=== PATIENT | male | born 1935 | race Caucasian/White ===

== ENCOUNTER 2023-05-21 20:22 | Inpatient (IN) | payer OTHER ==
[~2023-05-21] VITALS: Ht 180.3 cm; Wt 94.6 kg
[2023-05-21] MEDS ORDERED: ONDANSETRON HCL 4 MG/2 ML VIAL IV PRN (22:15)
[2023-05-21] MEDS ORDERED: HYDROcodone-ACET 5/325MG TAB PO PRN (22:15)
[2023-05-21] MEDS ORDERED: MORPHINE SULFATE INJ 2 MG/ml SYRG IV PRN (22:15)
[2023-05-21] MEDS ORDERED: ACETAMINOPHEN 325 MG TAB PO PRN (22:15)
[2023-05-21] MEDS ORDERED: NITROGLYCERIN 0.4 MG SL TAB SL PRN (22:15)
[2023-05-22] VITALS (8 sets, daily range): BP systolic 126–166; BP diastolic 66–81; PULSE 43–83; RESP 17–20; TEMP 97.1–98.9; O2SAT 92–98
[2023-05-22 00:06] LABS: Basophils # (auto) 0.1 10 ^3/uL (0-0.2); Basophils % (auto) 0.7 % (0.0-2.0); Eosinophils # (auto) 0.2 10 ^3/uL (0-0.8); Eosinophils % (auto) 1.6 % (0.0-7.0); Hematocrit 47.2 % (41.0-53.0); Hemoglobin 15.2 g/dL (13.5-17.5); Lymphocytes # (auto) 1.5 10 ^3/uL (0.4-5.4); Lymphocytes % (auto) 12.5 % (10.0-50.0); Mean Corpuscular Hgb Conc. 32.3 g/dL (32.0-36.0); Mean Corpuscular Volume 89.9 fL (80.0-100.0); Monocytes # (auto) 1.1 10 ^3/uL (0-1.3); Monocytes % (auto) 9.1 % (0.0-12.0); Neutrophils # (auto) 9.3 10 ^3/uL (1.6-8.6); Neutrophils % (auto) 76.1 % (37.0-80.0); Red Blood Cells 5.25 10^6/uL (4.5-5.90); White Blood Cell 12.2 10^3/uL (4.4-10.8)
[2023-05-22 00:15] LABS: Chloride 104 mmol/L (98-107); Potassium 4.2 mmol/L (3.5-5.1); Sodium 136 mmol/L (136-145)
[2023-05-22 00:16] LABS: Anion Gap 3 (5-15); Calcium 10.1 mg/dL (8.7-10.4); Carbon Dioxide 29 mmol/L (20-30)
[2023-05-22 00:21] LABS: BUN/Creatinine Ratio 17.5 (10.0-20.0); Blood Urea Nitrogen 30 mg/dL (9-23); Glucose 117 mg/dL (74-106); INR 1.09 (0.9-1.15); Partial Thromboplastin Time 32.6 SEC (24.5-34.5); Prothrombin Time 11.4 sec (9.3-11.8)
[2023-05-22] MEDS ORDERED: FENO160T PO (00:45)
[2023-05-22] MEDS ORDERED: LEV75T PO (00:45)
[2023-05-22] MEDS ORDERED: ACETYLCYSTEINE ORAL for CIN 20%(200MG/ML) 4ML PO SCH (01:00)
[2023-05-22] MEDS: SODIUM CHLORIDE 0.9% 1,000 ML IV SCH ×2 (01:52→08:30)
[2023-05-22] MEDS: cefTRIAXone 1GM/50ML D5W 50 ML IV SCH (01:53)
[2023-05-22] MEDS: LEVOTHYROXINE SODIUM 25 MCG TAB PO SCH (07:00)
[2023-05-22 09:54] LABS: Chloride 104 mmol/L (98-107); Potassium 4.9 mmol/L (3.5-5.1); Sodium 138 mmol/L (136-145)
[2023-05-22 09:55] LABS: Anion Gap 6 (5-15); Calcium 9.5 mg/dL (8.5-10.1); Carbon Dioxide 28 mmol/L (20-30); INR 1.08 (0.9-1.15); Partial Thromboplastin Time 29.7 SEC (24.5-34.5); Prothrombin Time 11.3 sec (9.3-11.8)
[2023-05-22 10:00] LABS: BUN/Creatinine Ratio 22.8 (10.0-20.0); Blood Urea Nitrogen 34 mg/dL (9-23); Glucose 105 mg/dL (74-106)
[2023-05-22] MEDS: PANTOPRAZOLE 40 MG/10 ML VIAL INJ IV SCH (10:00)
[2023-05-22] MEDS ORDERED: HEPARIN SODIUM (PORCINE) 5000 UNITS/ML 1ML VIAL IV ONE (10:30)
[2023-05-22] MEDS: HEPARIN DRIP/D5W 100UNITS/ML 250 ML IV SCH (11:38)
[2023-05-22 18:33] LABS: INR 1.09 (0.9-1.15); Partial Thromboplastin Time 41.2 SEC (24.5-34.5); Prothrombin Time 11.4 sec (9.3-11.8)
[2023-05-22] MEDS: ATORVASTATIN 20 MG TAB PO SCH (21:09)
[2023-05-23] VITALS (11 sets, daily range): BP systolic 106–172; BP diastolic 60–95; PULSE 64–77; RESP 15–21; TEMP 97.1–97.8; O2SAT 95–98
[2023-05-23 02:26] LABS: Basophils # (auto) 0.1 10 ^3/uL (0-0.2); Basophils % (auto) 0.9 % (0.0-2.0); Eosinophils # (auto) 0.5 10 ^3/uL (0-0.8); Hematocrit 39.6 % (41.0-53.0); Lymphocytes # (auto) 1.4 10 ^3/uL (0.4-5.4); Lymphocytes % (auto) 17.5 % (10.0-50.0); Mean Corpuscular Hemoglobin 29.4 pg (28.0-32.0); Mean Corpuscular Hgb Conc. 32.9 g/dL (32.0-36.0); Mean Corpuscular Volume 89.4 fL (80.0-100.0); Monocytes # (auto) 0.8 10 ^3/uL (0-1.3); Monocytes % (auto) 10.5 % (0.0-12.0); Neutrophils # (auto) 5.1 10 ^3/uL (1.6-8.6); Neutrophils % (auto) 65.1 % (37.0-80.0); Nucleated Red Blood Cells % 0.1 %; Red Blood Cells 4.43 10^6/uL (4.5-5.90); Red Cell Distribution Width 14.5 % (11.8-14.3); White Blood Cell 7.7 10^3/uL (4.4-10.8)
[2023-05-23 02:38] LABS: Chloride 106 mmol/L (98-107); Potassium 4.3 mmol/L (3.5-5.1); Sodium 136 mmol/L (136-145)
[2023-05-23 02:39] LABS: Anion Gap 3 (5-15); Carbon Dioxide 27 mmol/L (20-30)
[2023-05-23 02:40] LABS: Calcium 9.1 mg/dL (8.7-10.4)
[2023-05-23 02:44] LABS: BUN/Creatinine Ratio 19.5 (10.0-20.0); Glucose 104 mg/dL (74-106); INR 1.08 (0.9-1.15); Partial Thromboplastin Time 56.4 SEC (24.5-34.5); Prothrombin Time 11.3 sec (9.3-11.8)
[2023-05-23 02:49] LABS: Blood Urea Nitrogen 24 mg/dL (9-23)
[2023-05-23] MEDS: ACETYLCYSTEINE 20%(200MG/ML) SOLN 30ML PO SCH (05:49)
[2023-05-23 08:44] LABS: INR 1.08 (0.9-1.15); Prothrombin Time 11.3 sec (9.3-11.8)
[2023-05-23] MEDS: HEPARIN DRIP/D5W 100UNITS/ML 250 ML IV SCH (10:04)
[2023-05-23 10:11] LABS: Partial Thromboplastin Time 81.3 SEC (24.5-34.5)
[2023-05-23] MEDS ORDERED: HEPARIN DRIP/D5W 100UNITS/ML 250 ML IV SCH (10:20)
[2023-05-23] MEDS: fentaNYL CITRATE 100 MCG/2 ML VL ONE (10:36)
[2023-05-23] MEDS: ANGIOMAX 250 MG VIAL IV ONE (10:36)
[2023-05-23] MEDS: MIDAZOLAM HCL 2MG/2ML 2ml VIAL (1mg/ml) ONE (10:36)
[2023-05-23] MEDS: HEPARIN SODIUM (PORCINE) 5000 UNITS/ML 1ML VIAL ONE (10:36)
[2023-05-23] MEDS: VERAPAMIL 2.5MG/ML INJ 2ML VIAL IV ONE (10:36)
[2023-05-23] MEDS: LIDOCAINE 2%HCL (LOCAL ANESTH.) INJ 20ML MDV ONE (10:37)
[2023-05-23] MEDS: IODIXANOL 320MG/ML 100ML BTL IV ONE (10:37)
[2023-05-23] MEDS: SODIUM CHL 0.9% 0 ML ONE (10:37)
[2023-05-23] MEDS: hydrALAZINE HCL 20 MG/ML VL ONE (11:02)
[2023-05-23] MEDS: SODIUM CHLORIDE 0.9% 1,000 ML IV SCH (14:51)
[2023-05-23] MEDS: hydrALAZINE HCL 10 MG TAB PO PRN (16:31)
[2023-05-24 05:00] VITALS: BP 127/63; PULSE 74; RESP 18; TEMP 98; O2SAT 96
[2023-05-24 06:16] LABS: Chloride 106 mmol/L (98-107); Potassium 4.8 mmol/L (3.5-5.1); Sodium 136 mmol/L (136-145)
[2023-05-24 06:17] LABS: Anion Gap 6 (5-15); Carbon Dioxide 24 mmol/L (20-30)
[2023-05-24 06:18] LABS: Calcium 9.5 mg/dL (8.5-10.1)
[2023-05-24 06:22] LABS: Glucose 99 mg/dL (74-106)
[2023-05-24 06:23] LABS: BUN/Creatinine Ratio 13.2 (10.0-20.0); Blood Urea Nitrogen 17 mg/dL (9-23)
[2023-05-24 08:00] VITALS: PULSE 67; O2SAT 96
[2023-05-24 08:50] VITALS: BP 141/60; PULSE 75; RESP 18; TEMP 97.8; O2SAT 95
[2023-05-24 16:55] VITALS: BP 114/53; PULSE 73; RESP 18; TEMP 97.6; O2SAT 95
[2023-05-24 20:00] VITALS: PULSE 89; RESP 16; O2SAT 95
[2023-05-25] VITALS (8 sets, daily range): BP systolic 110–154; BP diastolic 63–79; PULSE 69–89; RESP 14–18; TEMP 97.9–98.4; O2SAT 94–97
[2023-05-26] VITALS (7 sets, daily range): BP systolic 111–146; BP diastolic 55–66; PULSE 69–89; RESP 16–20; TEMP 97.5–98; O2SAT 93–97
[2023-05-26] MEDS: ENOXAPARIN SOD 40 MG/0.4 ML SYRINGE SC SCH (10:44)
[2023-05-27 08:00] VITALS: PULSE 71; PULSE 76; RESP 16; O2SAT 97
[2023-05-27 09:00] VITALS: BP 114/46; PULSE 71; RESP 18; TEMP 98.7; O2SAT 91
[2023-05-27 13:00] VITALS: BP 102/52; PULSE 75; RESP 18; TEMP 98.6; O2SAT 98
[2023-05-27 19:30] VITALS: PULSE 85; PULSE 86; RESP 16; O2SAT 97
[2023-05-27 22:00] VITALS: BP 119/76; PULSE 88; RESP 18; TEMP 97.9; O2SAT 97
[2023-05-28 05:00] VITALS: BP 116/55; PULSE 68; RESP 18; TEMP 98.8; O2SAT 93
[2023-05-28 08:00] VITALS: PULSE 68
[2023-05-28 09:00] VITALS: BP 131/61; PULSE 63; RESP 18; TEMP 98.5; O2SAT 96
[2023-05-28 12:58] VITALS: BP 129/66; PULSE 70; RESP 18; TEMP 97.9; O2SAT 96
[2023-05-28 16:59] VITALS: BP 129/70; PULSE 82; RESP 18; TEMP 98; O2SAT 97
[2023-05-28 20:00] VITALS: BP 111/58; PULSE 76; PULSE 79; RESP 17; TEMP 98.2; O2SAT 94
[2023-05-29 05:00] VITALS: BP 111/59; PULSE 69; RESP 17; TEMP 98.1; O2SAT 94
[2023-05-29 08:00] VITALS: PULSE 63; PULSE 68; RESP 17; O2SAT 99
[2023-05-29 09:00] VITALS: BP 113/56; PULSE 63; RESP 17; TEMP 97.9; O2SAT 99
[2023-05-29 11:13] LABS: Chloride 103 mmol/L (98-107); Potassium 4.6 mmol/L (3.5-5.1); Sodium 135 mmol/L (136-145)
[2023-05-29 11:14] LABS: Anion Gap 4 (5-15); Carbon Dioxide 28 mmol/L (20-30)
[2023-05-29 11:15] LABS: Calcium 9.5 mg/dL (8.5-10.1)
[2023-05-29 11:19] LABS: Glucose 104 mg/dL (74-106)
[2023-05-29 11:20] LABS: BUN/Creatinine Ratio 15.6 (10.0-20.0); Blood Urea Nitrogen 19 mg/dL (9-23)
[2023-05-29 13:00] VITALS: BP 106/76; PULSE 73; RESP 18; TEMP 97.6; O2SAT 95
[2023-05-29 17:00] VITALS: BP 104/62; PULSE 73; RESP 18; TEMP 98.3; O2SAT 98
== END 2023-05-29 22:05 | disposition short-term general hospital (02) | DRG 280 ==
LOC: TELE-CENTR 22:11 → UNDOADMIN 23:41 → TELE-CENTR 05-22 02:30
PROVIDERS: ADMIT Internal Medicine; ATTEND Internal Medicine
PROC: 4A023N8 Measurement of Cardiac Sampling and Pressure, Bilateral, Percutaneous Approach (ICD-10-PCS; principal; 2023-05-23)
PROC: B211YZZ Fluoroscopy of Multiple Coronary Arteries using Other Contrast (ICD-10-PCS; 2023-05-23)
PROC: B215YZZ Fluoroscopy of Left Heart using Other Contrast (ICD-10-PCS; 2023-05-23)
DX: I35.0 Nonrheumatic aortic (valve) stenosis (principal); I21.A1 Myocardial infarction type 2; N17.0 Acute kidney failure with tubular necrosis; N39.0 Urinary tract infection, site not specified; E03.9 Hypothyroidism, unspecified; E78.5 Hyperlipidemia, unspecified; N18.31 Chronic kidney disease, stage 3a; I12.9 Hypertensive chronic kidney disease with stage 1 through stage 4 chronic kidney disease, or unspecified chronic kidney disease; I89.0 Lymphedema, not elsewhere classified; Z85.821 Personal history of Merkel cell carcinoma; Z87.19 Personal history of other diseases of the digestive system; Z82.49 Family history of ischemic heart disease and other diseases of the circulatory system
CPT/HCPCS: 36415; 71045; 80048; 83880; 84484; 85025; 85610; 85730; 93005; 93460; 99152; C9113; G0378; J2250; Q9967

== ENCOUNTER → 2023-08-06 | Outpatient (CLI) | payer OTHER ==
[~2023-08-06] MED LIST: FENO160T PO; LEV75T PO
[2023-08-06 06:46] LABS: Urine Bacteria None Seen /hpf (None Seen)
[2023-08-06 06:57] LABS: Basophils # (auto) 0.1 10 ^3/uL (0-0.2); Basophils % (auto) 2.2 % (0.0-2.0); Eosinophils # (auto) 0.4 10 ^3/uL (0-0.8); Eosinophils % (auto) 8.2 % (0.0-7.0); Hematocrit 41.5 % (41.0-53.0); Hemoglobin 13.6 g/dL (13.5-17.5); Lymphocytes # (auto) 1.4 10 ^3/uL (0.4-5.4); Lymphocytes % (auto) 28.1 % (10.0-50.0); Mean Corpuscular Hemoglobin 29.1 pg (28.0-32.0); Mean Corpuscular Hgb Conc. 32.8 g/dL (32.0-36.0); Mean Corpuscular Volume 88.7 fL (80.0-100.0); Monocytes # (auto) 0.6 10 ^3/uL (0-1.3); Monocytes % (auto) 10.9 % (0.0-12.0); Neutrophils # (auto) 2.6 10 ^3/uL (1.6-8.6); Neutrophils % (auto) 50.6 % (37.0-80.0); Nucleated Red Blood Cells % 0.1 %; Red Blood Cells 4.68 10^6/uL (4.5-5.90); Red Cell Distribution Width 14.8 % (11.8-14.3); White Blood Cell 5.1 10^3/uL (4.4-10.8)
[2023-08-06 07:21] LABS: Albumin 4.3 g/dL (3.2-4.8); Alkaline Phosphatase 54 U/L (46-116); Anion Gap 4 (5-15); Aspartate Aminotransferase 16 U/L (13-40); BUN/Creatinine Ratio 20.1 (10.0-20.0); Blood Urea Nitrogen 28 mg/dL (9-23); Calcium 9.8 mg/dL (8.5-10.1); Carbon Dioxide 27 mmol/L (20-30); Chloride 108 mmol/L (98-107); Glucose 99 mg/dL (74-106); Sodium 139 mmol/L (136-145)
[2023-08-06 07:22] LABS: Bilirubin, Total 0.5 mg/dL (0.2-1.0); Total Protein 7.6 g/dL (5.7-8.2)
[2023-08-06 07:23] LABS: Alanine Aminotransferase 9 U/L (7-40)
[2023-08-06 07:31] LABS: Urine Blood Negative /uL (Negative); Urine Clarity Clear (Clear); Urine Color Light-Yellow (Yellow); Urine Protein, UAD TRACE (Negative); Urine Specific Gravity 1.022 (1.001-1.035); Urine Urobilinogen Normal (Negative); Urine WBC <1 /hpf (0 - 3); Urine pH 6.5 (5.0-9.0)
[2023-08-06 07:52] LABS: Creatinine, Urine 81.05 mg/dL (30.0-125.0)
== END | disposition home or self-care (01) ==
LOC: LAB 06:35
PROVIDERS: ATTEND Internal Medicine Nephrology
DX: E11.22 Type 2 diabetes mellitus with diabetic chronic kidney disease (principal); N18.30 Chronic kidney disease, stage 3 unspecified; D63.1 Anemia in chronic kidney disease; E11.21 Type 2 diabetes mellitus with diabetic nephropathy; M10.9 Gout, unspecified; N39.0 Urinary tract infection, site not specified; R80.9 Proteinuria, unspecified; E21.3 Hyperparathyroidism, unspecified; E55.9 Vitamin D deficiency, unspecified
CPT/HCPCS: 36415; 80053; 81001; 82043; 82570; 85025

== ENCOUNTER 2025-03-09 15:58 | Inpatient (IN) | payer OTHER ==
[~2025-03-09] VITALS: Ht 182.9 cm; Wt 69.5 kg
--- NOTE | 2025-03-09 16:59 | ED.PDOC ---
History of Present Illness HPI Comments 89 y/o M, with a history of heart valve replacement, presents with spouse for c/c of palpitations. Per spouse, patient was referred to the ED for evaluation after being found with elevated heart rate during in-person appointment with his oncologist for his prostate cancer, earlier, today. Patient, now, reports on feeling fine upon arrival to ED and denies having any symptoms at this time. 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's ED. Patient comments being discharged after only having cardiac blood work-up performed on him. Chief Complaint: Palpitations Time Seen by MD: 16:49 Reviewed Notes: Nurses Notes, Medications, Allergies Allergies: Coded Allergies: NO KNOWN ALLERGIES (Unverified , 05/22/23) Home Meds Reported Medications Fenofibrate (Fenofibrate) 160 Mg Tab, 1 TAB PO DAILY, #30 TAB 5 Refills 05/22/23 Levothyroxine Sodium (Synthroid) 75 Mcg Tab, 1 TAB PO DAILY, #30 TAB 5 Refills 05/22/23 Information Source: Patient, Spouse Mode of Arrival: Ambulatory Severity: Moderate Timing: Hours Duration: Since onset Prehospital treatment: None Past Medical History PAST MEDICAL HISTORY: Cancer (prostate cancer ), HTN, Thyroid Surgical History: Appendectomy Surgical History (Other): heart valve replacement Family History Family History: Reviewed,noncontributory to illness, No family hx of Cancer, No family hx of DM, No family hx of Heart kelin, No family hx of HTN, No family hx ofKidney kelin, No family hx of Liver kelin, No family hx of Lung kelin, No family hx of Stroke Social History Smoker: Non-Smoker Alcohol: Denies ETOH Use Drugs: Denies Drug Use Lives In: Home Constitutional: denies: chills, diaphoresis, fatigue, fever, malaise, sweats, weakness, others EENTM: denies: blurred vision, double vision, ear bleeding, ear discharge, ear drainage, ear pain, ear ringing, eye pain, eye redness, hearing loss, mouth pain, mouth swelling, nasal discharge, nose bleeding, nose congestion, nose pain, photophobia, tearing, throat pain, throat swelling, voice changes, others Respiratory: denies: cough, hemoptysis, orthopnea, SOB at rest, shortness of breath, SOB with excertion, stridor, wheezing, others Cardiovascular: reports: palpitations; denies: chest pain, dizzy spells, diaphoresis, Dyspnea on exertion, edema, irregular heart beat, left arm pain, lightheadedness, PND, syncope, others Gastrointestinal: denies: abdomen distended, abdominal pain, blood streaked bowels, constipated, diarrhea, dysphagia, difficulty swallowing, hematemesis, melena, nausea, poor appetite, poor fluid intake, rectal bleeding, rectal pain, vomiting, others Genitourinary: denies: burning, dysuria, flank pain, frequency, hematuria, incontinence, penile discharge, penile sore, pain, testicle pain, testicle swelling, urgency, others Neurological: denies: dizziness, fainting, headache, left sided numbness, left sided weakness, numbness, paresthesia, pre-existing deficit, right sided numbness, right sided weakness, seizure, speech problems, tingling, tremors, weakness, others Musculoskeletal: denies: back pain, gout, joint pain, joint swelling, muscle pain, muscle stiffness, neck pain, others Integumetry: denies: bruises, change in color, change in hair/nails, dryness, laceration, lesions, lumps, rash, wounds, others Allergic/Immunocompromised: denies: Difficulty Healing, Frequent Infections, Hives, Itching, others Hematologic/Lymphatic: denies: anemia, blood clots, easy bleeding, easy bruising, swollen glands, others Endocrine: denies: excessive hunger, excessive sweating, excessive thirst, excessive urination, flushing, intolerance to cold, intolerance to heat, unexplained weight gain, unexplained weight loss, others Psychiatric: denies: anxiety, bipolar disorder, depression, hopeless, panic disorder, schizophrenia, sleepless, suicidal, others All Other Systems: Reviewed and Negative Physical Exam General Appearance: Moderate Distress HEENT: Normal ENT Inspection, Pharynx Normal, TMs Normal Neck: Full Range of Motion, Non-Tender, Normal, Normal Inspection Respiratory: Chest Non-Tender, Lungs Clear, No Accessory Muscle Use, No Respi ratory Distress, Normal Breath Sounds Cardiovascular: Irregular, No Edema, No JVD, No Murmur, No Gallop, Tachycardia Breast Exam: Deferred Gastrointestinal: No Organomegaly, Non Tender, No Pulsatile Mass, Normal Bowel Sounds, Soft Genitalia: Deferred Pelvic: Deferred Rectal: Deferred Extremities: No calf tenderness, Normal capillary refill, Normal inspection, Normal range of motion, Non-tender, No pedal edema Musculoskeletal : Apperance: Normal Neurologic: Alert, injection molding operator II-XII nml as Tested, Motor Weakness, Normal Affect, Normal Mood, No Sensory Deficits Cerebellar Function: Normal Reflexes: Normal Skin: Dry, Pallor, Warm Lymphatic: No Adenopathy Was a procedure done? Was a procedure done?: No EKG EKG #1: Pulse Rate (adult): 146 [place]: Normal Cardiac Rhythm: PSVT Block: None Hypertrophy: None ST: Normal EKG #2: Pulse Rate (adult): 65 [place]: Normal Cardiac Rhythm: NSR Block: None Hypertrophy: None ST: Normal Differential Dx Considerations may include: arrhythmia, tachycardia, electrolyte imbalance, dehydration, MT, PE, CAD, ACS, among others X-Ray, Labs, Meds, VS Vital Signs Date Time Temp Pulse Resp B/P (MAP) Pulse Ox O2 Delivery O2 Flow Rate FiO2 03/09/25 18:38 147 03/09/25 17:02 144 03/09/25 17:02 144 03/09/25 16:03 97.6 72 19 114/64 97 97.6 Lab Test 03/09/25 17:11 Range/Units White Blood Count 5.7 4.4-10.8 10^3/uL Red Blood Count 4.35 L 4.5-5.90 10^6/uL Hemoglobin 12.5 L 13.5-17.5 g/dL Hematocrit 38.0 L 41.0-53.0 % Mean Corpuscular Volume 87.3 80.0-100.0 fL Mean Corpuscular Hemoglobin 28.7 28.0-32.0 pg Mean Corpuscular Hemoglobin Concent 32.9 32.0-36.0 g/dL Red Cell Distribution Width 15.7 H 11.8-14.3 % Platelet Count 199 140-450 10^3/uL Mean Platelet Volume 7.1 6.9-10.8 fL Neutrophils (%) (Auto) 63.2 37.0-80.0 % Lymphocytes (%) (Auto) 20.8 10.0-50.0 % Monocytes (%) (Auto) 10.8 0.0-12.0 % Eosinophils (%) (Auto) 4.2 0.0-7.0 % Basophils (%) (Auto) 1.0 0.0-2.0 % Neutrophils # (Auto) 3.6 1.6-8.6 10 ^3/uL Lymphocytes # (Auto) 1.2 0.4-5.4 10 ^3/uL Monocytes # (Auto) 0.6 0-1.3 10 ^3/uL Eosinophils # (Auto) 0.2 0-0.8 10 ^3/uL Basophils # (Auto) 0.1 0-0.2 10 ^3/uL Nucleated Red Blood Cells 0.1 % Sodium Level 139 136-145 mmol/L Potassium Level 4.1 3.5-5.1 mmol/L Chloride Level 98 98-107 mmol/L Carbon Dioxide Level 32 H 20-31 mmol/L Anion Gap 9 5-15 Blood Urea Nitrogen 24 H 9-23 mg/dL Creatinine 1.12 0.700-1.30 mg/dL Glomerular Filtration Rate Calc 64 >90 mL/min BUN/Creatinine Ratio 21.4 H 10.0-20.0 Serum Glucose 106 74-106 mg/dL Calcium Level 9.3 8.7-10.4 mg/dL Magnesium Level 2.3 1.6-2.6 mg/dL Troponin I High Sensitivity 16 </=54 ng/L The patient's CBC is within normal limits. The chemistry panel is within normal limits The troponin level is negative At this time the patient's heart rate did decrease but now has gone back up to 147. An IV Hep-Lock is being established The patient was given amiodarone and placed on an amiodarone drip The patient is being admitted at this time The cardiology consult will be obtained. Images Reviewed?: Images reviewed and evaluated by me Time of 1ST Reevaluation: 17:12 Reevaluation 1ST: Unchanged Patient Education/Counseling: Diagnosis, Treatment, Prognosis Family Education/Counseling: Diagnosis, Treatment, Prognosis SEPSIS Sepsis Screen Date sepsis recognized/suspect: Mar 09, 2025 Time Sepsis recognized/suspect: 1607 Recent Procedure: No On Antibiotic Therapy: No Respiratory Rate >20: No Heart Rate >90: No Temp<36 C (96.8 F) or >38.3 C: No SBP <90 or MAP <65 mmHG: No New Acute Mental Status Change: No Is the patient on CPAP, BIPAP,: No Physician Orders Electrocardigram (03/09/25 19:10) Urinalysis (03/09/25 16:56) Vital Signs Date Time Temp Pulse Resp B/P (MAP) Pulse Ox O2 Delivery O2 Flow Rate FiO2 03/09/25 18:38 147 03/09/25 17:02 144 03/09/25 17:02 144 03/09/25 16:03 97.6 72 19 114/64 97 97.6 Laboratory Tests Test 03/09/25 17:11 White Blood Count 5.7 10^3/uL (4.4-10.8) Departure 1 Departure Time of Disposition: 19:34 Impression: Primary Impression: Atrial fibrillation with rapid ventricular response Disposition: ADMITTED INPATIENT Admit to: Tele Condition: Fair Critical Care Note Critical Care Time?: Yes (45 min-critical care time only) Stability Stability form required: Yes Unstable for transfer: Telemetry monitoring (Telemetry monitoring required), ED Physician Assesment (Clinical assesment) Heart Score Heart Score: Heart Score Response (Comments) Value History Moderate Suspicious 1 EKG Normal 0 Age >65 2 Risk Factors >3 or Hx ASHD 2 Troponin Normal limit 0 Total 5 I personally scribed for MARTHA LEDEZMA MD ([email or web address]) on 03/09/25 at 16:59. Electronically submitted by Artem Plata ([email or web address]). I personally scribed for MARTHA LEDEZMA MD ([email or web address]) on 03/09/25 at 17:01. Electronically submitted by Artem Plata ([email or web address]). MARTHA LEDEZMA MD Mar 09, 2025 16:59
--- NOTE | 2025-03-09 17:04 | ECG ---
[facility] Test Date: 2025-03-09 Test Time: 17:02:59 Pat Name: RYNE CEBALLOS Department: ED Room: 0247T Gender: M Control Engineer: naty : 1935 Requested By: MARTHA LEDEZMA Order Number: [id number] Reading MD: Chandrakant Coleman Measurements Intervals [place] Rate: 144 P: 0 PA: 0 QRS: 155 QRSD: 96 T: 2 QT: 312 QTc: 483 Interpretive Statements Atrial fibrillation with rapid V-rate Multiple ventricular premature complexes Right ventricular hypertrophy ST depression, probably rate related Electronically Signed On 03-13-2025 10:27:47 PST by Chandrakant Coleman Please click the below link to view image of tracing.
[2025-03-09 17:48] LABS: Hematocrit 38.0 % (41.0-53.0); Hemoglobin 12.5 g/dL (13.5-17.5); Mean Corpuscular Hemoglobin 28.7 pg (28.0-32.0); Mean Corpuscular Volume 87.3 fL (80.0-100.0); Nucleated Red Blood Cells % 0.1 %
[2025-03-09 18:01] LABS: Chloride 98 mmol/L (98-107); Potassium 4.1 mmol/L (3.5-5.1); Sodium 139 mmol/L (136-145)
[2025-03-09 18:02] LABS: Anion Gap 9 (5-15); Calcium 9.3 mg/dL (8.7-10.4)
[2025-03-09 18:07] LABS: Glucose 106 mg/dL (74-106)
[2025-03-09 18:08] LABS: BUN/Creatinine Ratio 21.4 (10.0-20.0); Magnesium 2.3 mg/dL (1.6-2.6)
--- NOTE | 2025-03-09 18:39 | ECG ---
[facility] Test Date: 2025-03-09 Test Time: 18:38:27 Pat Name: RYNE CEBALLOS Department: Room: 0247T Gender: M Manager Creative Services: MINAL : 1935 Requested By: MARTHA LEDEZMA Order Number: [id number] Reading MD: Chandrakant Coleman Measurements Intervals [place] Rate: 147 P: 0 [place]: 0 QRS: 157 QRSD: 107 T: -3 QT: 327 QTc: 512 Interpretive Statements Atrial fibrillation with rapid V-rate Right ventricular hypertrophy Repolarization abnormality, prob rate related Baseline wander in lead(s) V3 Electronically Signed On 03-13-2025 10:28:39 PST by Chandrakant Coleman Please click the below link to view image of tracing.
[2025-03-09 18:56] LABS: Blood Urea Nitrogen 24 mg/dL (9-23); Carbon Dioxide 32 mmol/L (20-31)
[2025-03-09 20:10] VITALS: RESP 16; O2SAT 98
[2025-03-09] MEDS: AMIODARONE BOLUS KIT 100 ML IV ONE (21:19)
[2025-03-09] MEDS ORDERED: ONDANSETRON HCL 4 MG/2 ML VIAL IV PRN (22:30)
[2025-03-09] MEDS ORDERED: IPRATROPIUM BROM 0.5 MG/2.5ML INH SOL NEB PRN (22:30)
[2025-03-09] MEDS ORDERED: ALBUTEROL SULF 2.5 MG/0.5ML(0.5%) NEB SOLN NEB PRN (22:30)
[2025-03-09] MEDS ORDERED: ACETAMINOPHEN 325 MG TAB PO PRN (22:30)
[2025-03-09] MEDS ORDERED: DOCUSATE SOD 100 MG CAP PO PRN (22:30)
[2025-03-09] MEDS ORDERED: MORPHINE SULFATE INJ 2 MG/ml SYRG IV PRN ×2 (22:30)
[2025-03-09] MEDS ORDERED: NITROGLYCERIN 0.4 MG SL TAB SL PRN (22:30)
[2025-03-09] MEDS ORDERED: HYDROcodone-ACET 5/325MG TAB PO PRN (22:30)
--- NOTE | 2025-03-09 22:54 | DVH ---
CLINICAL HISTORY: cough congestion TECHNIQUE: Single view of the chest was obtained. COMPARISON: CT CHEST WO on DOS: 11/14/24, XR CHEST 2 VIEW on DOS: 11/14/24, CT CHEST LUNG CANCER SCREEN BASELINE / ANNUAL on DOS: 09/30/24, XR CHEST 2 VIEW on DOS: 09/30/24, XR CHEST 2 VIEW on DOS: 08/13/24 FINDINGS: The heart size and pulmonary vasculature are normal. There are diffuse coarsened interstitial opacities throughout both lungs. There are right apical surgical clips. There are diffuse sclerotic lesions. IMPRESSION: Diffuse coarsened interstitial thickening throughout both lungs, favor fibrosis. Diffuse osseous metastatic disease.
[2025-03-10] VITALS (9 sets, daily range): BP systolic 128–166; BP diastolic 58–87; PULSE 59–73; RESP 16–20; TEMP 97.5–98.7; O2SAT 89–99
--- NOTE | 2025-03-10 01:22 | DVHHP2 ---
EUNICE DE GUZMAN ADMINISTRATIVE JOB TITLES 03/10/25 0122: History of Present Illness Reason for Visit: Palpitations History of Present Illness 89-year-old male with past medical history of oxygen-dependent COPD, CHF, AFib, metastatic prostate cancer, lymphedema presents with complaints of palpitations x1 day. Patient was at his oncology visit when he was sent into the emergency department for having a high heart rate. On arrival to the emergency department the patient is found to be in AFib RVR with a heart rate 140. During the emergency department evaluation CBC is essentially unremarkable. BMP: Na 139, K4.1, BUN 24, creatinine 1.12, GFR 64, magnesium 2.3. Troponins negative 16. TSH 4.02, free T4 1.29. At this time patient denies any fevers, chills, worsening shortness of breath, chest pain, worsening leg edema, abdominal pain. Cardiovascular: AFIB, CHF, HTN Heme/Onc: Cancer Smoke: No ALCOHOL: none Drugs: None Lives: with Family Review of Systems Constitutional: No: Fever, Chills, Sweats, Weakness, Malaise, Other Eyes: No: Pain, Vision change, Conjunctivae inflammation, Eyelid inflammation, Other, Redness ENT: No: Ear pain, Ear discharge, Nose pain, Nose discharge, Nose congestion, Mouth pain, Mouth swelling, Throat pain, Throat swelling, Other Respiratory: Cough, SOB with excertion; No: Dry, Shortness of breath, Wheezing, Hemoptysis, Pleuritic Pain, Sputum, Wheezing, Other Cardiovascular: Palpitations; No: Chest Pain, Orthopnea, Paroxysmal Noc. Dyspnea, Edema, Lt Headedness, Other Gastrointestinal: No: Nausea, Vomiting, Abdominal Pain, Diarrhea, Constipation, Melena, Hematochezia, Other Genitourinary: No Dysuria, No Frequency, No Incontinence, No Hematuria, No Retention, No Other Musculoskeletal: No: other, neck pain, shoulder pain, arm pain, back pain, hand pain, leg pain, foot pain Skin: No: Rash, Lesions, Jaundice, Bruising, Other Neurological: No: Weakness, Numbness, Incoordination, Change in speech, Confusion, Seizures, Other Allergies: Coded Allergies: NO KNOWN ALLERGIES (Unverified , 05/22/23) Medications Current Medications Medications Dose Ordered Sig/Sonya Route Start Time Stop Time Status Last Admin Dose Admin Amiodarone HCl 250 ml @ 16.66 mls/ hr Q15H1M IV 03/10/25 04:30 Docusate Sodium 100 mg BIDPRN PRN PO 03/09/25 22:30 Acetaminophen 650 mg Q6HP PRN PO 03/09/25 22:30 Acetaminophen/ Hydrocodone Bitart 1 tab Q6HP PRN PO 03/09/25 22:30 Ondansetron HCl 4 mg Q4HP PRN IV 03/09/25 22:30 Morphine Sulfate 2 mg Q4HPRN PRN IV 03/09/25 22:30 Enoxaparin Sodium 40 mg DAILY SC 03/10/25 10:00 Nitroglycerin 0.4 mg Q5MINP PRN SL 03/09/25 22:30 Morphine Sulfate 2 mg Q30M PRN IV 03/09/25 22:30 Albuterol 2.5 mg Q4HPRN PRN NEB 03/09/25 22:30 Ipratropium [place] 0.5 mg Q4HPRN PRN NEB 03/09/25 22:30 Pantoprazole Sodium 40 mg DAILY IV 03/10/25 10:00 Lisinopril 10 mg DAILY PO 03/10/25 10:00 Furosemide 40 mg DAILY IV 03/10/25 10:00 Exam Vital Signs Vital Signs Date Time Temp Pulse Resp B/P (MAP) Pulse Ox O2 Delivery O2 Flow Rate FiO2 03/09/25 23:51 98.1 68 15 128/58 (81) 100 98.1 03/09/25 20:10 Room Air* 0 21 General Appearance: Alert, Oriented X3, Cooperative, mild distress HEENT: Atraumatic, PERRLA, EOMI Respiratory: Other (diminished air exchange) Cardiovascular: Other (afib RVR) Abdominal: Normal bowel sounds, Soft, No tenderness Extremities: Other (trace BLE edema) Skin: No rashes, No breakdown Neuro: Normal speech, Strength at 5/5 X4 ext Psych/Mental Status: Mental status NL, Mood NL Labs/Xrays Labs Test 03/09/25 17:11 Range/Units White Blood Count 5.7 4.4-10.8 10^3/uL Red Blood Count 4.35 L 4.5-5.90 10^6/uL Hemoglobin 12.5 L 13.5-17.5 g/dL Hematocrit 38.0 L 41.0-53.0 % Mean Corpuscular Volume 87.3 80.0-100.0 fL Mean Corpuscular Hemoglobin 28.7 28.0-32.0 pg Mean Corpuscular Hemoglobin Concent 32.9 32.0-36.0 g/dL Red Cell Distribution Width 15.7 H 11.8-14.3 % Platelet Count 199 140-450 10^3/uL Mean Platelet Volume 7.1 6.9-10.8 fL Neutrophils (%) (Auto) 63.2 37.0-80.0 % Lymphocytes (%) (Auto) 20.8 10.0-50.0 % Monocytes (%) (Auto) 10.8 0.0-12.0 % Eosinophils (%) (Auto) 4.2 0.0-7.0 % Basophils (%) (Auto) 1.0 0.0-2.0 % Neutrophils # (Auto) 3.6 1.6-8.6 10 ^3/uL Lymphocytes # (Auto) 1.2 0.4-5.4 10 ^3/uL Monocytes # (Auto) 0.6 0-1.3 10 ^3/uL Eosinophils # (Auto) 0.2 0-0.8 10 ^3/uL Basophils # (Auto) 0.1 0-0.2 10 ^3/uL Nucleated Red Blood Cells 0.1 % Sodium Level 139 136-145 mmol/L Potassium Level 4.1 3.5-5.1 mmol/L Chloride Level 98 98-107 mmol/L Carbon Dioxide Level 32 H 20-31 mmol/L Anion Gap 9 5-15 Blood Urea Nitrogen 24 H 9-23 mg/dL Creatinine 1.12 0.700-1.30 mg/dL Glomerular Filtration Rate Calc 64 >90 mL/min BUN/Creatinine Ratio 21.4 H 10.0-20.0 Serum Glucose 106 74-106 mg/dL Calcium Level 9.3 8.7-10.4 mg/dL Magnesium Level 2.3 1.6-2.6 mg/dL Troponin I High Sensitivity 16 </=54 ng/L Thyroid Stimulating Hormone (TSH) 4.02 0.55-4.78 uIU/mL Free Thyroxine (T4) Calculated 1.29 0.89-1.76 ng/dL SEPSIS Sepsis Screen Date sepsis recognized/suspect: Mar 09, 2025 Time Sepsis recognized/suspect: 1608 Recent Procedure: No On Antibiotic Therapy: No Respiratory Rate >20: No Heart Rate >90: No Temp<36 C (96.8 F) or >38.3 C: No SBP <90 or MAP <65 mmHG: No New Acute Mental Status Change: No Is the patient on CPAP, BIPAP,: No Physician Orders [place]ock Iv (03/09/25 19:36) Professor Of Theatre (03/09/25 19:36) Blood Pressure (03/09/25 19:36) Pulse Oximetry (03/09/25 19:36) Amiodarone 450mg/250ml Ae (Cordarone) (03/09/25 20:00) Communication Order (03/09/25 20:37) Amiodarone 450mg/250ml Ae (Cordarone) (03/10/25 04:30) Communication Order (03/09/25 22:11) Admit (03/09/25 22:19) Code Status (03/09/25:19) Vital Signs .PER UNIT PROTOCOL (03/09/25 22:19) Review Orders With Adm. (03/09/25 22:19) Encourage Activity As Tolerate (03/09/25 22:19) Consistent Carb(Ccho)Diabetes (03/10/25 Breakfast) Oxygen By Face Mask (03/09/25 22:19) Docusate Sodium Capsule (Colace Capsule) (03/09/25 22:30) Acetaminophen Tablet (Tylenol Tablet) (03/09/25 22:30) Notify Md Of Changes From Base (03/09/25 22:19) Advance Directive (03/09/25 22:19) Echo 2d Mode Cardiac Dop (03/09/25 22:19) Basic Metabolic Panel (03/10/25 05:00) Basic Metabolic Panel (03/11/25 05:00) Basic Metabolic Panel (03/12/25 05:00) Basic Metabolic Panel (03/13/25 05:00) Basic Metabolic Panel (03/14/25 05:00) Complete Blood Count (03/10/25 05:00) Complete Blood Count (03/11/25 05:00) Complete Blood Count (03/12/25 05:00) Complete Blood Count (03/13/25 05:00) Complete Blood Count (03/14/25 05:00) Patient Condition (03/09/25 22:19) Allergies (03/09/25:19) Hydrocodone-Acet 5/325mg Tab ([place] 32 (03/09/25 22:30) Ondansetron Hcl (Zofran) (03/09/25 22:30) Morphine Sulfate Injection (03/09/25 22:30) Enoxaparin Sodium (Lovenox) (03/10/25 10:00) Sequential Compression Device (03/09/25 ) Nitroglycerin Sublingual (Ntrostat Subli (03/09/25 22:30) Morphine Sulfate Injection (03/09/25:30) Stat Ekg For Chest Pain (03/09/25:) Notify Md Of Changes From Base (03/09/25:) Production Material Coordinator For 24 Hours (03/09/25 22:19) Emergency Dysrhythmia Protocol (03/09/25:) Rhythm Strips Once Every Shift (03/09/25:19) Oxygen By Nasal Cannula (03/09/25:19) Albuterol Medneb (Ventolin Medneb) (03/09/25 22:30) Ipratropium Medneb (Atrovent Medneb) (03/09/25 22:30) * Cardiology Consult (03/09/25 22:19) Pantoprazole (Protonix) (03/10/25 10:00) Lisinopril Tablet (Zestril Tablet) (03/10/25 10:00) Furosemide Injection (Lasix Injection) (03/10/25 10:00) Chest Xray 1 View (03/09/25:17) Vital Signs Date Time Temp Pulse Resp B/P (MAP) Pulse Ox O2 Delivery O2 Flow Rate FiO2 03/09/25 23:51 98.1 68 15 128/58 (81) 100 98.1 03/09/25 21:38 70 117/48 (71) 96 03/09/25 21:31 132 21 92/48 (63) 97 03/09/25 20:10 16 98 Room Air* 0 21 03/09/25 20:06 97.7 151 16 128/73 (91) 98 97.7 03/09/25 18:38 147 Laboratory Tests Test 03/09/25 17:11 White Blood Count 5.7 10^3/uL (4.4-10.8) Medications Medications Dose Ordered Sig/Sonya Route Start Time Stop Time Status Last Admin Dose Admin Amiodarone HCl 100 ml @ 600 mls/hr ONCE ONCE IV 03/09/25 19:45 03/09/25 19:54 DC 03/09/25 21:19 600 MLS/HR Amiodarone HCl 250 ml @ 33.33 mls/ hr Q7H31M ONCE IV 03/09/25 20:00 03/10/25 03:30 03/09/25 21:31 33.33 MLS/HR Assessment/Plan Assessment/Plan AFIB RVR CHF not in exacerbation HX oxygen dependent COPD Hx metastatic prostate cancer Plan Admit to telemetry Cardiology consult. Echocardiogram. Amiodarone drip. Continue home medication. As needed antihypertensive for optimal BP management. Bronchodilators. Supplemental oxygen to keep oxygen saturation greater than 93%. Incentive spirometry. Physical therapy evaluation GI PPX protonix / DVT PPX Lovenox Plan discussed with: Patient, Spouse My Orders Orders - EUNICE DE GUZMAN NP Procedure Category Date Status Time Communication Order ORDERS 03/09/25 Transmitted 20:37 Amiodarone PHA 03/10/25 In Process 450mg/250ml Ae 04:30 Communication Order ORDERS 03/09/25 Transmitted 22:11 Admit ADMIT 03/09/25 Transmitted 22:19 Code Status CODE 03/09/25 Transmitted 22:19 Vital Signs CHARLES 03/09/25 In Process 22:19 Review Orders With CHARLES 03/09/25 In Process Adm. 22:19 Encourage Activity As CHARLES 03/09/25 In Process Tolerate 22:19 Consistent DIET 03/10/25 Transmitted Carb(Ccho)Diabetes Breakfast Oxygen By Face Mask RT 03/09/25 Transmitted 22:19 Docusate Sodium PHA 03/09/25 In Process Capsule (Colace 22:30 Acetaminophen Tablet PHA 03/09/25 In Process (Tylenol Tablet) 22:30 Notify Of Changes CHARLES 03/09/25 In Process From Base 22:19 Advance Directive CHARLES 03/09/25 In Process 22:19 Echo 2d Mode Cardiac US 03/09/25 Logged DOP 22:19 Basic Metabolic Panel LAB 03/10/25 Logged 05:00 Basic Metabolic Panel LAB 03/11/25 Verified 05:00 Basic Metabolic Panel LAB 03/12/25 Verified 05:00 Basic Metabolic Panel LAB 03/13/25 Verified 05:00 Basic Metabolic Panel LAB 03/14/25 Verified 05:00 Complete Blood Count LAB 03/10/25 Logged 05:00 Complete Blood Count LAB 03/11/25 Verified 05:00 Complete Blood Count LAB 03/12/25 Verified 05:00 Complete Blood Count LAB 03/13/25 Verified 05:00 Complete Blood Count LAB 03/14/25 Verified 05:00 Patient Condition ORDERS 03/09/25 Transmitted 22:19 Allergies CHARLES 03/09/25 In Process 22:19 Hydrocodone-Acet PHA 03/09/25 In Process 5/325mg Tab ([place] 22:30 Ondansetron Hcl PHA 03/09/25 In Process (Zofran) 22:30 Morphine Sulfate PHA 03/09/25 In Process Injection 22:30 Enoxaparin Sodium PHA 03/10/25 In Process (Lovenox) 10:00 Sequential CHARLES 03/09/25 In Process Compression Device Nitroglycerin PHA 03/09/25 In Process Sublingual (Ntrostat 22:30 Morphine Sulfate PHA 03/09/25 In Process Injection 22:30 Stat Ekg For Chest CHARLES 03/09/25 In Process Pain 22:19 Notify Of Changes CHARLES 03/09/25 In Process From Base 22:19 Production Material Coordinator For CHARLES 03/09/25 In Process 24 Hours 22:19 Emergency Dysrhythmia CHARLES 03/09/25 In Process Protocol 22:19 Rhythm Strips Once CHARLES 03/09/25 In Process Every Shift 22:19 Oxygen By Nasal RT 03/09/25 Transmitted Cannula 22:19 Albuterol Medneb PHA 03/09/25 In Process (Ventolin Medneb) 22:30 Ipratropium Medneb PHA 03/09/25 In Process (Atrovent Medneb) 22:30 * Cardiology Consult CONS 03/09/25 Transmitted 22:19 Pantoprazole PHA 03/10/25 In Process (Protonix) 10:00 Lisinopril Tablet PHA 03/10/25 In Process (Zestril Tablet) 10:00 Furosemide Injection PHA 03/10/25 In Process (Lasix Injection) 10:00 Chest Xray 1 View XY 03/09/25 Resulted 22:17 Date of Service: Mar 10, 2025 Billing Provider: EVANS MIRELES MD Common Visit Codes: NOT BILLABLE EVANS MIRELES MD 03/10/25 1453: Review of Systems Allergies: Coded Allergies: NO KNOWN ALLERGIES (Unverified , 05/22/23) Additional Comments Additional Comments Additional Comments Patient's chart is reviewed and discussed with the nurse practitioner. 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 I agree with his evaluation, documentation, assessment and care plan as outlined. Patient is seen by me earlier today. Discussed with the nurse/patient at bedside regarding care plan. EUNICE DE GUZMAN NP Mar 10, 2025 01:22 EVANS MIRELES MD Mar 10, 2025 14:53
[2025-03-10] MEDS ORDERED: LISI10TA34 PO (05:25)
[2025-03-10] MEDS ORDERED: LEVO75TA6 PO (05:25)
[2025-03-10] MEDS ORDERED: FURO20TA4 PO (05:25)
[2025-03-10] MEDS ORDERED: ABIR250T5 (05:26)
[2025-03-10 09:43] LABS: Hematocrit 36.1 % (41.0-53.0); Hemoglobin 12.0 g/dL (13.5-17.5); Mean Corpuscular Hemoglobin 28.7 pg (28.0-32.0); Mean Corpuscular Volume 86.6 fL (80.0-100.0); Nucleated Red Blood Cells % 0.1 %
[2025-03-10] MEDS: LISINOPRIL 5 MG TAB PO SCH (09:55)
[2025-03-10] MEDS: FUROSEMIDE 40 MG/4 ML VIAL IV SCH (09:55)
[2025-03-10] MEDS: ENOXAPARIN SOD 40 MG/0.4 ML SYRINGE SC SCH (09:55)
[2025-03-10] MEDS: PANTOPRAZOLE 40 MG/10 ML VIAL INJ IV SCH (09:55)
[2025-03-10 09:57] LABS: Chloride 99 mmol/L (98-107); Potassium 4.3 mmol/L (3.5-5.1); Sodium 137 mmol/L (136-145)
[2025-03-10 09:58] LABS: Anion Gap 5 (5-15); Calcium 9.3 mg/dL (8.7-10.4)
[2025-03-10 10:03] LABS: BUN/Creatinine Ratio 16.7 (10.0-20.0); Blood Urea Nitrogen 19 mg/dL (9-23); Triglycerides 66 mg/dL (< 150)
[2025-03-10 10:05] LABS: Carbon Dioxide 33 mmol/L (20-31); Cholesterol 126 mg/dL (< 200); Glucose 114 mg/dL (74-106)
[2025-03-10 10:06] LABS: HDL Cholesterol 37 mg/dL (40-59)
--- NOTE | 2025-03-10 11:19 | DVHINCON2 ---
Date Seen: Mar 10, 2025 Referring Physician MICHAEL Lubin Reason for Consultation Afib RVR History of Present Illness This is an 89-year-old male patient who presents to the emergency room with chief complaint of palpitations and shortness of breath. The patient reports he has been experiencing intermittent palpitations for the last three months. He was prompted to come to the emergency room after having a notable elevated heart rate at his oncologist appointment. The patient came to the emergency room for further evaluation. Initial twelve lead electrocardiogram reveals atrial fibrillation with a rapid ventricular response. The patient was initiated on an amiodarone drip while in the emergency room. At the time of assessment, the patient is now in normal sinus rhythm. Initial troponin level of 16ng/L. Patient denies any cardiac symptoms at time of assessment including chest pain, palpitations, shortness of breath, or dizziness. Significant past medical history includes severe aortic valve stenosis status post TAVR, congestive heart failure, dyslipidemia, thyroid disease, and prostate cancer currently undergoing chemotherapy. The patient follows up with his primary payroll tax specialist in the outpatient setting. Past Medical History Past medical history reviewed. No other significant than mentioned above. Past Surgical History TAVR in 2023 Appendectomy Family History: Hypertension G8 MOTHER Family History Family history reviewed. Social History Denies the use of tobacco, alcohol or illicit drugs. Allergies: Coded Allergies: NO KNOWN ALLERGIES (Unverified , 05/22/23) Home Meds Reported Medications Abiraterone Acetate (Abiraterone Acetate) 250 Mg Tab 03/10/25 Furosemide (Furosemide) 20 Mg Tab, 1 TAB PO BID 03/10/25 Levothyroxine Sodium (Levothyroxine Sodium) 75 Mcg Tab, 1 TAB PO DAILY 03/10/25 Lisinopril (Lisinopril) 10 Mg Tab, 1 TAB PO DAILY 03/10/25 Fenofibrate (Fenofibrate) 160 Mg Tab, 1 TAB PO DAILY, #30 TAB 5 Refills 05/22/23 Levothyroxine Sodium (Synthroid) 75 Mcg Tab, 1 TAB PO DAILY, #30 TAB 5 Refills 05/22/23 Home Meds Home medications reviewed. Current Medications Current Medications Medications (Trade) Dose Ordered Sig/Sonya Route PRN Reason Start Time Stop Time Status Last Admin Amiodarone HCl 250 ml @ 16.66 mls/ hr Q15H1M IV 03/10/25 04:30 03/10/25 05:04 Docusate Sodium (Colace Capsule) 100 mg BIDPRN PRN PO FOR CONSTIPATION 03/09/25 22:30 Acetaminophen (Tylenol Tablet) 650 mg Q6HP PRN PO PAIN SCALE 1-3 OR TEMP>100.4 03/09/25 22:30 Acetaminophen/ Hydrocodone Bitart ([place] 5/325MG Tab) 1 tab Q6HP PRN PO MODERATE PAIN (4-6 PAIN SCALE) 03/09/25 22:30 Ondansetron HCl (Zofran) 4 mg Q4HP PRN IV NAUSEA / VOMITING 03/09/25 22:30 Morphine Sulfate 2 mg Q4HPRN PRN IV SEVERE PAIN (7-10 PAIN SCALE) 03/09/25 22:30 Enoxaparin Sodium (Lovenox) 40 mg DAILY SC 03/10/25 10:00 03/10/25 09:55 Nitroglycerin (Ntrostat Sublingual) 0.4 mg Q5MINP PRN SL FOR CHEST PAIN 03/09/25 22:30 Morphine Sulfate 2 mg Q30M PRN IV FOR CHEST PAIN 03/09/25 22:30 Albuterol (Ventolin Medneb) 2.5 mg Q4HPRN PRN NEB SHORTNESS OF BREATH 03/09/25 22:30 Ipratropium [place] (Atrovent Medneb) 0.5 mg Q4HPRN PRN NEB SHORTNESS OF BREATH 03/09/25 22:30 Pantoprazole Sodium (Protonix) 40 mg DAILY IV 03/10/25 10:00 03/10/25 09:55 Lisinopril (Zestril Tablet) 10 mg DAILY PO 03/10/25 10:00 03/10/25 09:55 Furosemide (Lasix Injection) 40 mg DAILY IV 03/10/25 10:00 03/10/25 09:55 Review of Systems Constitutional: No symptom reported Ears, Nose, & Throat: No symptom reported Eyes: No symptom reported Neurological: No symptoms reported Pulmonary/Respiratory: Shortness of breath Cardiovascular: Palpitations Gastrointestinal: No symptom reported Genitourinary: No symptom reported Musculoskeletal: No symptom reported Skin: No symptom reported Psychiatric: No symptom reported Endocrine: No symptom reported Hematologic/Lymphatic: No symptom reported Vital Signs Vital Signs Date Time Temp Pulse Resp B/P (MAP) Pulse Ox O2 Delivery O2 Flow Rate FiO2 03/10/25 09:55 150/76 03/10/25 09:00 98.2 59 19 95 98.2 03/10/25 08:00 Room Air* 0 21 Labs/Diagnostic Data Labs Test 03/10/25 09:20 03/09/25 17:11 Range/Units White Blood Count 6.7 4.4-10.8 10^3/uL Red Blood Count 4.17 L 4.5-5.90 10^6/uL Hemoglobin 12.0 L 13.5-17.5 g/dL Hematocrit 36.1 L 41.0-53.0 % Mean Corpuscular Volume 86.6 80.0-100.0 fL Mean Corpuscular Hemoglobin 28.7 28.0-32.0 pg Mean Corpuscular Hemoglobin Concent 33.1 32.0-36.0 g/dL Red Cell Distribution Width 15.3 H 11.8-14.3 % Platelet Count 200 140-450 10^3/uL Mean Platelet Volume 6.9 6.9-10.8 fL Neutrophils (%) (Auto) 70.3 37.0-80.0 % Lymphocytes (%) (Auto) 15.8 10.0-50.0 % Monocytes (%) (Auto) 9.9 0.0-12.0 % Eosinophils (%) (Auto) 3.2 0.0-7.0 % Basophils (%) (Auto) 0.8 0.0-2.0 % Neutrophils # (Auto) 4.7 1.6-8.6 10 ^3/uL Lymphocytes # (Auto) 1.0 0.4-5.4 10 ^3/uL Monocytes # (Auto) 0.7 0-1.3 10 ^3/uL Eosinophils # (Auto) 0.2 0-0.8 10 ^3/uL Basophils # (Auto) 0.1 0-0.2 10 ^3/uL Nucleated Red Blood Cells 0.1 % Sodium Level 137 136-145 mmol/L Potassium Level 4.3 3.5-5.1 mmol/L Chloride Level 99 98-107 mmol/L Carbon Dioxide Level 33 H 20-31 mmol/L Anion Gap 5 5-15 Blood Urea Nitrogen 19 9-23 mg/dL Creatinine 1.14 0.700-1.30 mg/dL Glomerular Filtration Rate Calc 62 >90 mL/min BUN/Creatinine Ratio 16.7 10.0-20.0 Serum Glucose 114 H 74-106 mg/dL Hemoglobin A1c 5.6 <5.7 % A1C Calcium Level 9.3 8.7-10.4 mg/dL Triglycerides Level 66 < 150 mg/dL Cholesterol Level 126 < 200 mg/dL LDL Cholesterol 83 < 100 mg/dL HDL Cholesterol 37 L 40-59 mg/dL Magnesium Level 2.3 1.6-2.6 mg/dL Troponin I High Sensitivity 16 </=54 ng/L Thyroid Stimulating Hormone (TSH) 4.02 0.55-4.78 uIU/mL Free Thyroxine (T4) Calculated 1.29 0.89-1.76 ng/dL Assessment Atrial fibrillation with rapid ventricular response, newly diagnosed, now normal sinus rhythm Chronic HFmrEF, NYHA class II (per ventriculography on 05/23/2023 EF of 45%) Severe aortic valve stenosis status post TAVR Dyslipidemia Thyroid disease Prostate cancer currently undergoing chemotherapy Possible metastatic disease Plan/Recommendation We will continue with the following plan/recommendations (Dr. Coleman): Case discussed with . We will proceed with obtaining a transthoracic echocardiogram to evaluate cardiac function. The patient presented with atrial fibrillation with rapid ventricular response and is now in a normal sinus rhythm. [id number] VASc score: 3 points, HAS-BLED score: 1 point. Initiate therapeutic Lovenox while inpatient. Consider DOAC therapy if patient deemed to be an appropriate candidate. Initiate low-dose beta-svetlana and transitioned to oral amiodarone. Monitor and replete electrolytes as needed keeping potassium greater than four and magnesium greater than two. Continue with close cardiac surveillance and notify cardiology team immediately for any ECG changes. Thank you for allowing us to care for this patient. Please call with any questions or concerns. Critical care time spent: 44 minutes This medical document was created using an electronic medical record system with voice recognition software and computerized dictation system. Although this document has been carefully reviewed, there might still be some phonetic and typographical errors. Occasional wrong-word or ``sound-alike substitutions may have occurred due to the inherent limitations of voice recognition software. These areas are purely typographical due to imperfections of the software programs and do not reflect any compromise in the patient's medical care. Please read the chart carefully and recognize, using context, where these substitutions have occurred. Plan discussed with: Patient NYHA Physical activity limitations: Class2(Slight)fatigue,sob (palpitatns, angina w activityv) Date of Service: Mar 10, 2025 Billing Provider: ANH MAGANA Cardiology Common Codes: [id number] INP/OBS CARE (High) Cardiology Consultation Codes: [id number] CONSULT <45MIN ANH MAGANA Mar 10, 2025 11:19
[2025-03-10] MEDS: AMIODARONE HCL 200 MG TAB PO ONE (13:04)
[2025-03-10] MEDS: APIXABAN 2.5 MG TAB PO SCH (21:23)
[2025-03-10] MEDS: METOPROLOL TARTRATE 25 MG TAB PO SCH (21:24)
[2025-03-10] MEDS: AMIODARONE HCL 200 MG TAB PO SCH (21:25)
[2025-03-10] MEDS ORDERED: ENOXAPARIN SOD 80 MG/0.8ML SYRINGE SC SCH (22:00)
[2025-03-11] VITALS (8 sets, daily range): BP systolic 128–150; BP diastolic 66–85; PULSE 17–66; RESP 16–17; TEMP 36.5; O2SAT 92–100
[2025-03-11] MEDS: LEVOTHYROXINE SODIUM 25 MCG TAB PO SCH (05:22)
[2025-03-11] MEDS: LEVOTHYROXINE SODIUM 50 MCG TAB PO SCH (05:22)
[2025-03-11 06:50] LABS: Hematocrit 37.9 % (41.0-53.0); Hemoglobin 12.4 g/dL (13.5-17.5); Mean Corpuscular Hemoglobin 28.0 pg (28.0-32.0); Mean Corpuscular Volume 85.9 fL (80.0-100.0); Nucleated Red Blood Cells % 0.0 %
[2025-03-11 07:13] LABS: Anion Gap 7 (5-15); Calcium 9.0 mg/dL (8.7-10.4); Carbon Dioxide 30 mmol/L (20-31); Chloride 101 mmol/L (98-107); Potassium 3.6 mmol/L (3.5-5.1); Sodium 138 mmol/L (136-145)
[2025-03-11 07:19] LABS: BUN/Creatinine Ratio 16.7 (10.0-20.0); Blood Urea Nitrogen 17 mg/dL (9-23); Glucose 96 mg/dL (74-106)
--- NOTE | 2025-03-11 10:48 | DVHSR ---
APPROVED REPORT EXAM: Two-dimensional and M-mode echocardiogram with Doppler and color Doppler. Blood Pressure: 166/85 mmHg INDICATION afib rvr Surgery/Intervention Valve Replacement: RISK FACTORS Height: 6'0, Weight: 179 DIMENSIONS LVDd 4.7 (3.8-5.7cm) LA (2D) 4.2 (1.9-4.0cm) Aortic Root 2.3 (2.0-3.7cm) LVDs 3.5 (2.5-4.0cm) LA (MM) (1.9-4.0cm) Aortic Cusp Exc 1.8 (1.5-2.0cm) EF (%) 45.0 (55-70%) Rt. Atrium 4.3 (1.9-4.0cm) Asc. Aorta cm IVSd 1.0 (0.7-1.1cm) RV (D) 4.0 (1.8-2.4cm) PWd 0.9 (0.7-1.1cm) Mitral Valve Mitral Mitral Stenosis E wave 1.18m/s MV Mean GR. 3mmHg A wave 1.06m/s MV Peak GR. 7mmHg E/A ratio 1.1 2D MVA cm2 DECEL Time 201ms PRESS 1/2 Time ms Aortic Valve Aortic Valve Aortic Stenosis V1 0.68m/s AO Mean GR. 6mmHg V2 1.62m/s AO Peak GR. 10mmHg LVOT Diameter 1.8 (1.8-2.4cm) Doppler EDDIE 1.07cm2 AI P 1/2 Time 490.47ms Pulmonic Valve V2 0.84m/s Tricuspid Valve TR Velocity 3.97m/s RVSP 66mmHg Conclusion Technically good study. Sinus rhythm. Mild LV enlargement. Left atrial enlargement. There was a prosthetic aortic valve. There does not appear to be apparent dysfunction. The mitral valve appears to have moderate mitral annular calcification of the anterior and medial mitral leaflets. Adequate excursion of the mitral valve. The tricuspid valve appears to be structurally normal. Left ventricular function is diminished. EF is approximately 35% with global hypokinesis. RV function is mildly diminished. Moderate tricuspid regurgitation. Moderate pulmonic insufficiency. No intracardiac masses thrombi or vegetations discernible.
--- NOTE | 2025-03-11 11:36 | DVHPN2 ---
Consult Progress Note Date Seen: Mar 11, 2025 Subjective Review of Systems: CVS:Normal, RESPIRATORY:Normal, NEURO:Normal Other Systems: Complains of nausea. Denies vomiting or abdominal discomfort Objective vital signs Vital Sign Date Time Temp Pulse Resp B/P (MAP) Pulse Ox O2 Delivery O2 Flow Rate FiO2 03/11/25 09:47 150/85 03/11/25 09:46 66 03/11/25 08:54 97.6 17 92 97.6 03/11/25 08:00 Room Air* 0 21 Total Intake and Output 03/10/25 03/10/25 03/11/25 15:00 23:00 07:00 Intake Total 800 ml 400 ml Balance 800 ml 400 ml medications Current Medications Medications Dose Ordered Sig/Sonya Route Start Time Stop Time Status Last Admin Dose Admin Docusate Sodium 100 mg BIDPRN PRN PO 03/09/25 22:30 Acetaminophen 650 mg Q6HP PRN PO 03/09/25 22:30 Acetaminophen/ Hydrocodone Bitart 1 tab Q6HP PRN PO 03/09/25 22:30 Ondansetron HCl 4 mg Q4HP PRN IV 03/09/25 22:30 Morphine Sulfate 2 mg Q4HPRN PRN IV 03/09/25 22:30 Nitroglycerin 0.4 mg Q5MINP PRN SL 03/09/25 22:30 Morphine Sulfate 2 mg Q30M PRN IV 03/09/25 22:30 Albuterol 2.5 mg Q4HPRN PRN NEB 03/09/25 22:30 Ipratropium [place] 0.5 mg Q4HPRN PRN NEB 03/09/25 22:30 Lisinopril 10 mg DAILY PO 03/10/25 10:00 03/11/25 09:47 10 MG Furosemide 40 mg DAILY IV 03/10/25 10:00 03/11/25 09:47 40 MG Amiodarone HCl 200 mg Q12HR PO 03/10/25 22:00 03/11/25 09:47 200 MG Enoxaparin Sodium 80 mg Q12HR SC 03/10/25 22:00 Hold Metoprolol Tartrate 12.5 mg BID PO 03/10/25 22:00 03/11/25 09:46 12.5 MG Levothyroxine Sodium 25 mcg QAM@0600 PO 03/11/25 06:00 03/11/25 05:22 25 MCG Apixaban 2.5 mg BID PO 03/10/25 22:00 03/11/25 09:45 2.5 MG Levothyroxine Sodium 50 mcg QAM@0600 PO 03/11/25 06:00 03/11/25 05:22 50 MCG Examination: LUNGS:Normal, CVS:Normal (Sinus bradycardia 50s bpm), NEURO:Normal laboratory and microbiology Laboratory Tests 03/11/25 06:13 Test 03/11/25 06:13 Range/Units Serum Glucose 96 74-106 mg/dL Problem List/Assessment/Plan Problem List/Assessment/Plan Atrial fibrillation with rapid ventricular response, newly diagnosed, now normal sinus rhythm Chronic compensated HFrEF, NYHA class II Severe aortic valve stenosis status post TAVR Dyslipidemia Thyroid disease Prostate cancer currently undergoing chemotherapy Possible metastatic disease Plan/Recommendation (Dr. Coleman) Case discussed with Dr. Coleman. A transthoracic echocardiogram revealed a LVEF of 35% with global hypokinesis, moderate tricuspid regurgitation, and moderate pulmonic insufficiency. The patient with new onset atrial fibrillation with rapid ventricular response transitioned into a normal sinus rhythm. Continue low-dose Eliquis therapy given advanced age ([id number] VASc score: 3 points, HAS- BLED score: 1 point). Continue low-dose antiarrhythmic with oral amiodarone. Continue full GDMT for HFrEF and titrate as tolerated. Monitor and replete electrolytes as needed keeping potassium greater than four and magnesium greater than two. Initiate PPI. Consider an outpatient event monitor. No invasive cardiac work-up is recommended at this time given malignancy with metastatic disease. Follow-up with Dr. Coleman within 3-4 weeks post-discharge. There is no further cardiac work-up indicated at this time. Kindly call with any questions or concerns. Thank you for allowing us to care for this patient. This medical document was created using an electronic medical record system with voice recognition software and computerized dictation system. Although this document has been carefully reviewed, there might still be some phonetic and typographical errors. Occasional wrong-word or ``sound-alike substitutions may have occurred due to the inherent limitations of voice recognition software. These areas are purely typographical due to imperfections of the software programs and do not reflect any compromise in the patient's medical care. Please read the chart carefully and recognize, using context, where these substitutions have occurred. Plan discussed with: Patient, Other Date of Service: Mar 11, 2025 Billing Provider: SATYA REYNOLDS Cardiology Common Codes: [id number] HOSP CARE(High SATYA REYNOLDS Mar 11, 2025 11:36
[2025-03-11] MEDS: POTASSIUM CHL 20 Meq TABLET PO ONE (12:51)
[2025-03-11] MEDS: PANTOPRAZOLE 40 MG TAB PO ONE (12:51)
[2025-03-11] MEDS ORDERED: AMIO200T13 PO (15:50)
[2025-03-11] MEDS ORDERED: METO-6 PO (15:50)
[2025-03-11] MEDS ORDERED: APIX2.5T PO (15:50)
--- NOTE | 2025-03-11 15:51 | DVHDS2 ---
Discharge Summary Date of Admission Mar 09, 2025 at 22:19 Date of Discharge: Mar 11, 2025 Labs/Diagnostic Data: Laboratory Results Test 03/11/25 06:13 03/10/25 09:20 03/09/25 17:11 White Blood Count 6.8 10^3/uL (4.4-10.8) Red Blood Count 4.41 10^6/uL (4.5-5.90) Hemoglobin 12.4 g/dL (13.5-17.5) Hematocrit 37.9 % (41.0-53.0) Mean Corpuscular Volume 85.9 fL (80.0-100.0) Mean Corpuscular Hemoglobin 28.0 pg (28.0-32.0) Mean Corpuscular Hemoglobin Concent 32.6 g/dL (32.0-36.0) Red Cell Distribution Width 15.2 % (11.8-14.3) Platelet Count 187 10^3/uL (140-450) Mean Platelet Volume 6.9 fL (6.9-10.8) Neutrophils (%) (Auto) 69.7 % (37.0-80.0) Lymphocytes (%) (Auto) 16.0 % (10.0-50.0) Monocytes (%) (Auto) 10.1 % (0.0-12.0) Eosinophils (%) (Auto) 3.3 % (0.0-7.0) Basophils (%) (Auto) 0.9 % (0.0-2.0) Neutrophils # (Auto) 4.8 10 ^3/uL (1.6-8.6) Lymphocytes # (Auto) 1.1 10 ^3/uL (0.4-5.4) Monocytes # (Auto) 0.7 10 ^3/uL (0-1.3) Eosinophils # (Auto) 0.2 10 ^3/uL (0-0.8) Basophils # (Auto) 0.1 10 ^3/uL (0-0.2) Nucleated Red Blood Cells 0.0 % Sodium Level 138 mmol/L (136-145) Potassium Level 3.6 mmol/L (3.5-5.1) Chloride Level 101 mmol/L (98-107) Carbon Dioxide Level 30 mmol/L (20-31) Anion Gap 7 (5-15) Blood Urea Nitrogen 17 mg/dL (9-23) Creatinine 1.02 mg/dL (0.700-1.30) Glomerular Filtration Rate Calc 71 mL/min (>90) BUN/Creatinine Ratio 16.7 (10.0-20.0) Serum Glucose 96 mg/dL (74-106) Calcium Level 9.0 mg/dL (8.7-10.4) Hemoglobin A1c 5.6 % A1C (<5.7) Triglycerides Level 66 mg/dL (< 150) Cholesterol Level 126 mg/dL (< 200) LDL Cholesterol 83 mg/dL (< 100) HDL Cholesterol 37 mg/dL (40-59) Magnesium Level 2.3 mg/dL (1.6-2.6) Troponin I High Sensitivity 16 ng/L (</=54) Thyroid Stimulating Hormone (TSH) 4.02 uIU/mL (0.55-4.78) Free Thyroxine (T4) Calculated 1.29 ng/dL (0.89-1.76) Other Laboratory Tests 03/11/25 06:13 Brief Hx & Hospital Course: 89-year-old male with past medical history of oxygen-dependent COPD, CHF, AFib, metastatic prostate cancer, lymphedema presents with complaints of palpitations x1 day. Patient was at his oncology visit when he was sent into the emergency department for having a high heart rate. On arrival to the emergency department the patient is found to be in AFib RVR with a heart rate 140. During the emergency department evaluation CBC is essentially unremarkable. BMP: Na 139, K4.1, BUN 24, creatinine 1.12, GFR 64, magnesium 2.3. Troponins negative 16. TSH 4.02, free T4 1.29. At this time patient denies any fevers, chills, worsening shortness of breath, chest pain, worsening leg edema, abdominal pain. He is admitted and once again counseled and educated regarding his heart failure and atrial fibrillation. Patient is advised to continue the cardiac medications as he is taking at home and as prescribed keep the heart rate and blood pressure under good control. While in the hospital otherwise patient clinically remained stable. Given AFib with a RVR is controlled he is getting out of bed and ambulating without any problems. Discussed with the him regarding anticoagulation for stroke prevention and risks of bleeding as well. Patient requested walker which is arranged through social Service. Otherwise given overall his symptoms resolved and back to baseline normal status has been discharged home. I have talked with the patient regarding his hospital diagnosis, treatment he received, discharge medications including side effects, discharge instructions and follow-up plan of care. He has verbalized understanding of these and agree with the care plan as outlined. Operations or Procedures PPROVED REPORT EXAM: Two-dimensional and M-mode echocardiogram with Doppler and color Doppler. Blood Pressure: 166/85 mmHg INDICATION afib rvr Surgery/Intervention Valve Replacement: RISK FACTORS Height: 6'0, Weight: 179 DIMENSIONS LVDd 4.7 (3.8-5.7cm) LA (2D) 4.2 (1.9-4.0cm) Aortic Root 2.3 (2.0- 3.7cm) LVDs 3.5 (2.5-4.0cm) LA (MM) (1.9-4.0cm) Aortic Cusp Exc 1.8 (1.5- 2.0cm) EF (%) 45.0 (55-70%) Rt. Atrium 4.3 (1.9-4.0cm) Asc. Aorta cm IVSd 1.0 (0.7-1.1cm) RV (D) 4.0 (1.8-2.4cm) PWd 0.9 (0.7-1.1cm) Mitral Valve Mitral Mitral Stenosis E wave 1.18m/s MV Mean GR. 3mmHg A wave 1.06m/s MV Peak GR. 7mmHg E/A ratio 1.1 2D MVA cm2 DECEL Time 201ms PRESS 1/2 Time ms Aortic Valve Aortic Valve Aortic Stenosis V1 0.68m/s AO Mean GR. 6mmHg V2 1.62m/s AO Peak GR. 10mmHg LVOT Diameter 1.8 (1.8-2.4cm) Doppler EDDIE 1.07cm2 AI P 1/2 Time 490.47ms Pulmonic Valve V2 0.84m/s Tricuspid Valve TR Velocity 3.97m/s RVSP 66mmHg Conclusion Technically good study. Sinus rhythm. Mild LV enlargement. Left atrial enlargement. There was a prosthetic aortic valve. There does not appear to be apparent dysfunction. The mitral valve appears to have moderate mitral annular calcification of the anterior and medial mitral leaflets. Adequate excursion of the mitral valve. The tricuspid valve appears to be structurally normal. Left ventricular function is diminished. EF is approximately 35% with global hypokinesis. RV function is mildly diminished. Moderate tricuspid regurgitation. Moderate pulmonic insufficiency. No intracardiac masses thrombi or vegetations discernible. SIGNED BY: WILDER COLEMAN Sr., MD SIGNED DATE/TIME: 03/11/25 1043 Condition at Discharge: Stable Final Diagnosis/Problems List AFib with RVR, hypertension Discharge Disposition: Home Discharge Instruct/Medications Diet: Consistent carbohydrate, Cardiac 2g Na,low cholest Activity: No Restrictions, As Tolerated Follow Up/Referral: Dr. Coleman a staff development nurse after 2 weeks for fast heart rate and primary care physician as needed Medications: Take her medications as prescribed in her medications for discharge med reconciliation list Scheduled Amiodarone HCl (Amiodarone HCl), 100 MG PO BID Apixaban Base (Eliquis), 2.5 MG PO BID Fenofibrate (Fenofibrate), 1 TAB PO DAILY, (Reported) Furosemide (Furosemide), 1 TAB PO BID, (Reported) Levothyroxine Sodium (Synthroid), 1 TAB PO DAILY, (Reported) Levothyroxine Sodium (Levothyroxine Sodium), 1 TAB PO DAILY, (Reported) Lisinopril (Lisinopril), 1 TAB PO DAILY, (Reported) Metoprolol Succinate (Toprol Xl), 25 MG PO DAILY Miscellaneous Medications Abiraterone Acetate (Abiraterone Acetate), (Reported) Discharge Statement: "Patient was advised to return to the ER or call 911 if any headaches, dizziness, shortness of breath, chest pain, abdominal pain, bleeding, fevers, or worsening of medical condition. Patient was counseled about treatment plan, medications, possible side effects, patientverbalized understanding. All questions were answered to the best of my ability. This discharge took greater then 30 minutes in planning, reviewing documentation, counseling the patient, and discussing with other team members." ASSESSMENT ASSESSMENT Assessment AFib with RVR, hypertension EVANS MIRELES MD Mar 11, 2025 15:51
[2025-03-11] MEDS ORDERED: AMIODARONE HCL 200 MG TAB PO SCH (22:00)
[2025-03-12] MEDS ORDERED: PANTOPRAZOLE 40 MG TAB PO SCH (06:00)
[2025-03-12] MEDS ORDERED: METOPROLOL SUCCINATE XL 50 MG TAB PO SCH (10:00)
[2025-03-12] MEDS ORDERED: EMPAGLIFLOZIN 10 MG TAB PO SCH (10:00)
[2025-03-12] MEDS ORDERED: SPIRONOLACTONE 25 MG TAB PO SCH (10:00)
[2025-03-12] MEDS ORDERED: FUROSEMIDE 40 MG TAB PO SCH (10:00)
--- NOTE | 2025-03-16 08:04 | ECG ---
[facility] Test Date: 2025-03-09 Test Time: 16:19:12 Pat Name: RYNE CEBALLOS Department: Room: 0247T B Gender: M Supervisor/Port Director: DR WALKER: [id number] Requested By: MARTHA LEDEZMA Order Number: [id number] Reading MD: Chandrakant Coleman Measurements Intervals [place] Rate: 146 P: 0 NC: 73 QRS: 162 QRSD: 97 T: -4 QT: 312 QTc: 487 Interpretive Statements Supraventricular tachycardia Multiform ventricular premature complexes Right ventricular hypertrophy Repolarization abnormality, prob rate related Electronically Signed On 03-19-2025 17:36:29 PST by Chandrakant Coleman Please click the below link to view image of tracing.
== END 2025-03-11 18:29 | disposition home health service (06) | DRG 309 ==
LOC: ER 15:58 → OVERFLOW 22:19 → TELE-EAST 03-10 04:45
PROVIDERS: ADMIT Internal Medicine; ATTEND Internal Medicine
DX: I48.91 Unspecified atrial fibrillation (principal); I50.22 Chronic systolic (congestive) heart failure; Z95.2 Presence of prosthetic heart valve; C61 Malignant neoplasm of prostate; I11.0 Hypertensive heart disease with heart failure; J44.9 Chronic obstructive pulmonary disease, unspecified; I35.0 Nonrheumatic aortic (valve) stenosis; E78.5 Hyperlipidemia, unspecified; I07.1 Rheumatic tricuspid insufficiency; I05.8 Other rheumatic mitral valve diseases; I05.0 Rheumatic mitral stenosis; Z82.49 Family history of ischemic heart disease and other diseases of the circulatory system; Z99.81 Dependence on supplemental oxygen; Z79.899 Other long term (current) drug therapy
CPT/HCPCS: 36415; 71045; 80048; 80061; 83036; 83735; 84439; 84443; 84484; 85025; 93005; 93306; 96365; 96366; 96375; 99291; G0378; J2470